=== PATIENT | male | born 1965 | race Caucasian/White ===

== ENCOUNTER → 2021-09-17 | Day surgery (SDC) | payer OTHER ==
[~2021-09-17] VITALS: Ht 177.8 cm; Wt 104.3 kg
[~2021-09-17] MED LIST: HCTZ12.5 MG PO; NORVASC5 MG PO; PRINIVIL20 MG PO
[2021-09-17 06:50] LABS: HCT 48.4 % (42.0-52.0); HGB 16.9 g/dl (13.2-18.0); MCH 30.8 pg (25.0-31.0); MCHC 34.9 g/dL (32.0-36.0); MCV 88.2 fL (78.0-100.0); MPV 9.4 fL (6.0-9.5); RBC 5.49 M/uL (4.70-6.00); RDW 12.2 % (11.5-14.0)
[2021-09-17 07:03] LABS: BILIRUBIN - TOTAL 0.6 mg/dL (0.2-1.0); BUN/CREAT RATIO (CALC) 15.3 RATIO; CREATININE 1.18 mg/dL (0.67-1.17); GLOBULIN (CALCULATION) 3.6 g/dL; POTASSIUM 3.8 mmol/L (3.5-5.1); TOTAL PROTEIN 7.6 g/dL (6.4-8.2)
== END | disposition home or self-care (01) ==
LOC: FAS 05:52
PROVIDERS: Orthopaedic Surgery
DX: S83.231A Complex tear of medial meniscus, current injury, right knee, initial encounter (principal); M77.11 Lateral epicondylitis, right elbow; M25.861 Other specified joint disorders, right knee; K21.9 Gastro-esophageal reflux disease without esophagitis; I10 Essential (primary) hypertension; M79.4 Hypertrophy of (infrapatellar) fat pad; Z88.0 Allergy status to penicillin; X58.XXXA Exposure to other specified factors, initial encounter
CPT/HCPCS: 36415; 71045; 80053; 93005; J1100; J1170; J1885; J2250; J2405; J2704; J3010; J7120